=== PATIENT | male | born 1955 | race Caucasian/White ===

== ENCOUNTER 2018-11-20 13:22 | Day surgery (SDC) | payer OTHER ==
[2018-11-20] MEDS ORDERED: LR 1,000 ML IV ONE (13:33)
--- NOTE | 2018-11-20 14:09 | PDANEPAE ---
ANE History of Present Illness EUS/colonoscopy ANE Past Medical History - Cardiovascular History Hx Hypertension: No Hx Arrhythmias: No Hx Chest Pain: No Hx Coronary Artery / Peripheral Vascular Disease: No Hx CHF / Valvular Disease: No Hx Palpitations: No Cardiovascular History Comment: hyperlipidemia - Pulmonary History Hx COPD: No Hx Asthma/Reactive Airway Disease: No Hx Recent Upper Respiratory Infection: No Hx Oxygen in Use at Home: No Hx Sleep Apnea: No Sleep Apnea Screening Result - Last Documented: Negative - Neurologic History Hx Cerebrovascular Accident: No Hx Seizures: No Hx Dementia: No - Endocrine History Hx Diabetes: No Hypothyroid: No Hyperthyroid: No Obesity: no Endocrine History Comment: hx of thyroid nodule removal - Renal History Hx Renal Disorders: No - Liver History Hx Hepatic Disorders: No - Neurological & Psychiatric Hx Hx Neurological and Psychiatric Disorders: No - Cancer History Hx Cancer: No - Congenital Disorder History Hx Congenital Disorders: No - GI History Hx Gastrointestinal Disorders: Yes Gastrointestinal History Comment: previous colonoscopy in sep 2018 - Other Health History Other Health History: bilateral hearing aides. wears glasses. rash on forearm , healing with neosporin - Chronic Pain History Chronic Pain: No - Surgical History Prior Surgeries: thyroid nodule removed ANE Review of Systems Review of systems is: negative Review of Systems: - Exercise capacity METS (RN): 4 METS ANE Patient History - Allergies Allergies/Adverse Reactions: No Known Allergies Allergy (Verified 11/15/18 12:31) - Home Medications Home medications: home medication list seen and reviewed Home Medications: Cbd Daily 11/15/18 [Last Taken 11/14/18] - NPO status NPO Since - Liquids (Date): 11/20/18 NPO Since - Liquids (Time): 11:00 NPO Since - Solids (Date): 11/19/18 NPO Since - Solids (Time): 08:00 - Anes Hx Anes Hx: no prior problems - Smoking Hx Smoking Status: Former smoker - Family Anes Hx Family Hx Anesthesia Complications: none ANE Labs/Vital Signs - Vital Signs Blood Pressure: 141/79 Heart Rate: 51 Respiratory Rate: 16 O2 Sat (%): 98 Height: 179.07 cm Weight: 83.915 kg ANE Physical Exam - Airway Neck exam: FROM Mallampati Score: Class 1 Mouth exam: normal dental/mouth exam - Pulmonary Pulmonary: no respiratory distress - Cardiovascular Cardiovascular: regular rate and rhythym - ASA Status ASA Status: II ANE Anesthesia Plan Anesthesia Plan: GA with mask
[2018-11-20] MEDS ORDERED: INDOMETHACIN 50 MG SUPP PR PRN (14:39)
--- NOTE | 2018-11-20 14:39 | PDGENHP ---
History & Physical Chief Complaint: subepithelial sigmoid History of Present Illness: 63 year old male presents for evaluation of subepithelial lipoma Pertinent Past, Social, Family History: PMHx: Hyperlipidemia Relevant Physical Exam: HEENT: anicteric. CV: RRR +s1s2. Lungs: CTAB. Abd: soft, nt, + BS Cardiorespiratory Assessment: ASA 2
[2018-11-20] MEDS ORDERED: PROPOFOL/EMULSION 500 MG/50 ML BOTTLE IV ONE ×2 (14:43→15:07)
[2018-11-20] MEDS ORDERED: ACETAMINOPHEN 500 MG TAB PO PRN (14:44)
[2018-11-20] MEDS ORDERED: ALBUTEROL 3 ML DEYVIAL IH PRN (14:44)
[2018-11-20] MEDS ORDERED: LR 500 ML IV PRN (14:44)
[2018-11-20] MEDS ORDERED: fentaNYL 100 MCG/2 ML INJ IVP PRN (14:44)
[2018-11-20] MEDS ORDERED: NALOXONE HCL 0.4 MG/ML INJ IVP PRN (14:44)
[2018-11-20] MEDS ORDERED: ONDANSETRON 4 MG/2 ML VIAL IVP PRN (14:44)
--- NOTE | 2018-11-20 14:44 | POSTANESTH ---
Post Anesthetic Evaluation Cardiovascular Status: Normal, Stable Respiratory Status: Normal, Stable Level of Consciousness/Mental Status: Can Participate in Eval, Mildly Sleepy, Arousable Pain Control: Adequate, Prn Tx Ordered Nausea/Vomiting Control: Adequate, Prn Tx Ordered Complications Possibly Related to Anesthesia: None Noted
[2018-11-20] MEDS ORDERED: NS 500 ML IV SCH (14:45)
--- NOTE | 2018-11-20 15:32 | GIREPORT ---
[facility] Surgical Services - Endoscopy Department Patient Name: Rod Velez Procedure Date: 11/20/2018 2:37 PM Patient Type: Outpatient Attending MD/ ER Physician: Paulino Pickett MD Procedure: Lower EUS Indications: Sigmoid deformity found on endoscopy; subepithelial tumor versus extrin sic compression Patient Profile: 63 year old male presents for evaluation of a sigmoid subepithelial les ion. Providers: Paulino Pickett MD Medicines: Monitored Anesthesia Care Complications: No immediate complications. Estimated blood loss: Minimal. Description of Procedure: After obtaining informed consent, the endoscope was passed under direct vision. Throughout the procedure, the patient's blood pressure, pulse, and oxygen saturations were monitored continuously. The Colonoscope was introduced through the anus and advanced to the sigmoid colon for ultrasound. The Endosonoscope was introduced through the anus and advan srinivas to the sigmoid colon for ultrasound. The lower EUS was accomplished wit hout difficulty. The patient tolerated the procedure well. The quality of th e bowel preparation was good. The lower EUS was accomplished without difficulty. Findings: The perianal and digital rectal examinations were normal. Pertinent negatives include no palpable rectal lesions. Endoscopic Finding : A polypoid lesion was found in the sigmoid colon at 17 cms from the umesh verge. The lesion was polypoid and soft Biopsies were taken with a cold forceps for histology. A area just distal to the lesion was marked with 4cc of Luz Ink. Endosonographic Finding : A hypoechoic/isoechoic mass was found in the sigmoid colon. The endosonographic borders were well-defined. A normal MP and submucosal l marsha were noted. Fine needle aspiration for cytology was performed. Color Do ppler imaging was utilized prior to needle puncture to confirm a lack of significant vascular structures within the needle path. Two passes were made with the 25 gauge needle using a transcolonic approach. A stylet was us ed. A services advisor was present and performed a preliminary cytologic examinatio n. Mucin was seen of FNA. Mucocele vs other? Estimated Blood Loss: Estimated blood loss was minimal. Post Op Diagnosis: - Polypoid lesion in the sigmoid colon. Biopsied. FNA performed. - Mucocele vs other? Recommendation: - Discharge patient to home (with escort). - Await cytology results and await path results. - Repeat procedure in 1 year if not diagnostic to ensure stability. - Thank you for allowing me to participate in the care of your patient. Attending Participation: I personally performed the entire procedure. Paulino Pickett MD Paulino Pickett MD 11/20/2018 3:32:04 PM This report has been signed electronicallyPaulino Pickett MD Number of Addenda: 0 Note Initiated On: 11/20/2018 2:37 PM [email or web address]
[2018-11-20] MEDS ORDERED: TEARS/DEXTRAN 70/HYPROMELLOSE 15 ML OPHT.BTL LEFTEYE PRN (16:45)
[2018-11-20 17:07] VITALS: BP 153/81
== END 2018-11-20 17:30 | disposition home or self-care (01) ==
LOC: FSGY 13:22
PROVIDERS: ATTEND Internal Medicine Gastroenterology
DX: K63.89 Other specified diseases of intestine (principal); E78.5 Hyperlipidemia, unspecified; Z87.891 Personal history of nicotine dependence
CPT/HCPCS: J2704